=== PATIENT | female | born 1965 | race Caucasian/White ===

== ENCOUNTER 2019-03-12 17:35 | Emergency (ER) | payer MEDICARE, MEDICAID, SELFPAY ==
[2019-03-12 17:49] VITALS: BP 136/96; PULSE 88; RESP 18; TEMP 36.4; O2SAT 95
[2019-03-12] MEDS: Erythromycin Ophth Oint 3.5 GM TUBE OU (18:43)
[2019-03-12 18:49] LABS: Bilirubin Negative (Negative); Blood Negative (Negative); Clarity Clear; Glucose Negative (Negative); Ketones 15 mg/dL (Negative); Leukocyte Esterase Negative (Negative); Nitrite Negative (Negative); Specific Gravity >= 1.030 (1.005-1.025); Urobilinogen 0.2 EU/dL (Up TO 0.2); pH 5.5 (5-8)
[2019-03-12 19:11] LABS: Bacteria Negative HPF (Negative); C & S Indicated? No; Casts Negative LPF (Negative); Crystals Negative HPF (Negative); Epithelial Cells Rare HPF (Negative); Mucus Negative (Negative); Other Cells Negative (Negative); RBC Negative (0-2); WBC 0-2 HPF (0-5)
--- NOTE | 2019-03-12 19:32 | ED.GENADUL_ITS ---
Discharge Plan Disposition Patient Disposition: HOME Condition: Stable Discharge Details Chief Complaint: Urinary Clinical Impression: Urinary frequency, Conjunctivitis Primary Care Provider: Ashley Matos ED Provider: Yasir Kang Home Meds and New Rx's Prescriptions: Continued multivitamin 1 EACH tablet 1 cap PO DAILY RF: 0 quetiapine 25 MG tablet 25 mg PO DAILY RF: 0 quetiapine [Seroquel] 100 MG tablet 1 tab PO DAILY RF: 0 oxcarbazepine [Trileptal] 150 MG tablet 1.5 tab PO BID RF: 0 sertraline [Zoloft] 100 MG tablet 1.5 tab PO DAILY Qty: 135 RF: 4 ergocalciferol (vitamin D2) [Vitamin D2] 50,000 UNIT capsule 1 tab-cap PO Q 2 weeks Qty: 8 RF: 12 atorvastatin 40 MG tablet 40 mg PO DAILY Qty: 90 RF: 11 Discharge Instructions Instructions: Conjunctivitis (ED) Additional Instructions: Continue patient's medications as prescribed and follow-up with primary care provider if patient continues to have urinary frequency. Return to emergency department for any new or significant worsening of symptoms or further concerns. For conjunctivitis please give ointment half inch in each eye 4 times daily for the next 5 to 7 days. Referrals: Ashley Matos MD, [place] [Primary Care Provider] - (As needed for reassessment or if not improving) Medical Decision Making Patient presenting to the emergency department with caregiver for chief complaint of urinary frequency and upper respiratory tract infection with eye irritation for the last couple days. Caregiver states her main concern is for urinary tract infection given that patient has had increase of urinary frequency over the past couple weeks. Patient is also been noted to be more irritable. Patient has severe mental retardation and has lived with caregiver for years. Caregiver denies any fever chills, nausea vomiting, and just states frequency of needing to use the restroom. She has noted over the past 2 days that patient along with upper respiratory tract symptoms has also had eye irritation with matting of the eyelids in the morning for the past 3 mornings. Physical exam shows bilateral conjunctival and scleral injection diffuse with no obvious purulence at this time, otherwise HEENT exam is unremarkable. Clear lung sounds and regular cardiac exam and no abdominal or CVA tenderness. Given conjunctival findings and persistence for 3 days feel that this may be associated with patient's upper respiratory tract infection but given the caregiver states that has seemed worse today plan to give patient erythromycin ointment to treat for any bacterial source. Otherwise plan to check urinalysis for concern of UTI. Review of urinalysis shows no acute urinary tract infectious type symptoms. Given family history of diabetes fingerstick was performed and it was 101. Otherwise patient is in stable condition with no other acute physical exam findings so I do feel that patient is able to be safely followed up with primary care for caregivers note of urinary frequency. Return precautions were discussed. After discussion of diagnosis and plan of care caregiver has no further needs, questions, or concerns and states clear understanding to return to the emergency department for any worsening symptoms. HPI General Mode of arrival: ambulatory . Date/Time Provider Initiated Documentation: 03/12/19 18:04 . Limitations to Documentation: other (Patient's mental delay) . Information obtained by: patient and RN notes reviewed . History of Present Illness 53 year old F presents to the emergency department with the chief complaint of Urinary frequency, uri, described as mild, Quality is described as other (Denies), Patient started experiencing this week(s) (2) and it has been constant. No relieving factors improve symptom(s), Patient notes no other symptoms.. Patient did receive the following treatments prior to arrival, none Related Data Home Medications Medication Instructions Recorded Confirmed multivitamin 1 cap PO DAILY 01/28/13 03/12/19 quetiapine 25 mg PO DAILY 01/28/13 03/12/19 quetiapine [Seroquel] 1 tab PO DAILY 01/28/13 03/12/19 oxcarbazepine [Trileptal] 1.5 tab PO BID 09/03/13 03/12/19 sertraline [Zoloft] 1.5 tab PO DAILY #135 tab 12/05/16 03/12/19 ergocalciferol (vitamin D2) 1 tab-cap PO Q 2 weeks #8 tab-cap 01/31/18 03/12/19 [Vitamin D2] atorvastatin 40 mg PO DAILY #90 tab-cap 05/24/18 03/12/19 Previous Rx's Medication Instructions Recorded ergocalciferol (vitamin D2) 1 tab-cap PO Q 2 weeks #8 tab-cap 01/31/18 [Vitamin D2] atorvastatin 40 mg PO DAILY #90 tab-cap 05/24/18 Allergies Allergy/AdvReac Type Severity Reaction Status Date / Time amoxicillin Allergy Unknown Unverified 04/23/18 14:37 Penicillins Allergy Unknown Unverified 04/23/18 14:37 Sulfa (Sulfonamide Allergy Unknown Unverified 04/23/18 14:37 Antibiotics) oxcarbazepine AdvReac Severe ELEVATED NA Unverified 04/23/18 14:37 General Stated Complaint: Urinary MYRON: 3 Review of Systems Constitutional Denies body ache(s), Denies chills, Denies fever(s), Denies malaise and Denies weakness Eyes Reports eye discharge, Reports irritation and Reports itchy eyes ENT Reports nasal congestion Cardiovascular Denies chest pain Respiratory Reports cough Gastrointestinal Denies abdominal pain, Denies nausea and Denies vomiting Genitourinary Reports as per HPI, Denies hematuria, Reports dysuria and Reports urinary urgency Neurologic Denies confusion and Denies weakness Psychiatric Denies confusion Allergic/Immunologic Reports itchy eyes PFSH Family History Mother Diabetes Father Diabetes Heart disease Sister No problems noted. Brother No problems noted. Sister No problems noted. FAMILY HISTORY Bipolar disorder Social History Smoking/Tobacco Use Status: Current every day Alcohol Intake: never Substance use type: does not use Do you feel safe at home: Yes Do you feel safe in your relationship?: Yes Exam Const General: cooperative and no acute distress Orientation: alert, awake and oriented x3 Eyes Visual Nayak: normal visual nayak by confrontation Alignment and Position: alignment normal Periorbital: periorbital findings normal Eyelids: eyelids normal Conjunctivae: conjunctival abnormality bilaterally conjunctival injection diffuse Sclera: scleral abnormality bilaterally scleral injection diffuse Cornea: corneas normal Pupils: PERRL EOM: EOM intact bilaterally Resp Effort & Inspection: normal respiratory effort and able to speak in complete sentences Auscultation: clear to auscultation bilaterally Cardio Rate: regular rate Rhythm: regular rhythm Heart Sounds: S1 normal and S2 normal GI Palpation: nontender Back/Spine/Pelvis Back: no CVA tenderness Neuro General: alert, awake and oriented x3 Extrem General: normal capillary refill Course Vital Signs Temperature 36.4 C L 03/12/19 17:49 Pulse 88 03/12/19 17:49 Respiratory Rate 18 03/12/19 17:49 Blood Pressure 136/96 H 03/12/19 17:49 Pulse Oximetry 95 03/12/19 17:49 Temperature 36.4 C L 03/12/19 17:49 Temperature Source Skin 03/12/19 17:49 Pulse 88 03/12/19 17:49 Respiratory Rate 18 03/12/19 17:49 Respiratory Effort Non-Labored 03/12/19 17:51 Blood Pressure 136/96 H 03/12/19 17:49 Blood Pressure Position Sitting 03/12/19 17:49 Pulse Oximetry 95 03/12/19 17:49 Oxygen Delivery Method Room Air 03/12/19 17:49 Oxygen Flow Rate 0 03/12/19 17:49 Pain Level 0 03/12/19 17:49 Lab/Test Results Lab/Test Results: Laboratory Tests Range/Units 03/12/19 18:20 Urine Color (Yellow) Yellow Urine Clarity Clear Urine pH (5-8) 5.5 Ur Specific [place] (1.005-1.025) >= 1.030 H Urine Protein (Negative) mg/dL Trace H Urine Ketones (Negative) mg/dL 15 H Urine Blood (Negative) Negative Urine Nitrite (Negative) Negative Urine Bilirubin (Negative) Negative Urine Urobilinogen (Up TO 0.2) EU/dL 0.2 Ur Leukocyte Esterase (Negative) Negative Urine RBC (0-2) Negative Urine WBC (0-5) HPF 0-2 Ur Epithelial Cells (Negative) HPF Rare Urine Crystals (Negative) HPF Negative Urine Bacteria (Negative) HPF Negative Urine Casts (Negative) LPF Negative Urine Mucus (Negative) Negative Urine Other (Negative) Negative Ur Culture Indicated? No Urine Glucose (Negative) mg/dL Negative
== END 2019-03-12 19:50 | disposition home or self-care (01) ==
PROVIDERS: Emergency Provider Nurse Practitioner Family; PCP Family Medicine
DX: R35.0 Frequency of micturition (principal); H10.9 Unspecified conjunctivitis; Z83.3 Family history of diabetes mellitus
CPT/HCPCS: 36416; 82962; 99284; 81003; 81015

== ENCOUNTER 2019-03-26 14:28 | Outpatient (CLI) | payer MEDICARE, MEDICAID, SELFPAY ==
[2019-03-26 14:59] LABS: Abs Immature Grans 0.03 k/cumm (0.0-0.09); Absolute Basophil Count 0.03 k/cumm (0.0-0.2); Absolute Eosinophil Count 0.23 k/cumm (0.0-0.7); Absolute Lymphocyte Count 2.34 k/cumm (1.2-3.4); Absolute Monocyte Count 0.76 k/cumm (0.11-0.7); Absolute Neutrophil Count 6.64 k/cumm (1.2-6.7); Basophils % 0.3; Eosinophils % 2.3; HCT 40.2 % (36.0-46.0); HGB 12.9 g/dL (12.0-15.5); Immature Grans % 0.3; Lymphocytes % 23.3; Mean Corp. HGB Concentration 32.1 g/dL (32.0-36.0); Mean Corpuscular Hemoglobin 28.5 pg (27.0-33.0); Mean Corpuscular Volume 88.9 fL (80-95); Mean Platelet Volume 9.7 fL (8.0-11.0); Monocytes % 7.6; Neutrophils % 66.2; Platelet Count 368 x1000/uL (130-400); RBC 4.52 m/cumm (4.00-5.20); RBC Distribution Width 14.9 % (11.7-14.6); White Blood Cell Count 10.03 k/cumm (4.4-10.8)
[2019-03-26 16:25] LABS: ALT 29 U/L (12-78); AST 17 U/L (15-37); Albumin 3.8 g/dL (3.4-5.0); Alkaline Phosphatase 180 U/L (46-116); Anion Gap 11.7 mmol/L (3-11); BUN 16 mg/dL (7-18); Bilirubin, Total 0.2 mg/dL (0.2-1.0); CO2 27.3 mmol/L (21.0-32.0); CREATININE 0.79 mg/dL (0.55-1.02); Calculated LDL 158; Chloride 102 mmol/L (98-107); Cholesterol 251 mg/dL (50-200); Glucose 91 mg/dL (70-100); HDL Cholesterol 47 mg/dL (40-60); Potassium 4.1 mmol/L (3.5-5.1); Sodium 141 mmol/L (136-145); TSH (W/Ref FT4) 1.11 uIU/mL (0.358-3.74); Total Protein 7.8 g/dL (6.4-8.2); Triglyceride 232 mg/dL (30-150)
== END 2019-03-26 14:48 ==
PROVIDERS: PCP Family Medicine; Visit Provider Family Medicine
DX: F42.9 Obsessive-compulsive disorder, unspecified (principal); F91.9 Conduct disorder, unspecified; G80.9 Cerebral palsy, unspecified; I10 Essential (primary) hypertension; R62.50 Unspecified lack of expected normal physiological development in childhood
CPT/HCPCS: 36415; 80053; 80061; 82306; 83721; 83036; 84443; 85025

== ENCOUNTER 2019-07-25 02:01 | Outpatient (CLI) | payer MEDICARE, MEDICAID, SELFPAY ==
--- NOTE | 2019-07-25 15:01 | DI.MAMMO_ITS ---
EXAM: MAMMO SCREENING CLINICAL HISTORY: screening Z12.31. TECHNIQUE: Mammograms were interpreted according to the usual protocol including computer analysis w [employer] system, tomosynthesis and C-view imaging. COMPARISON: Current examination is compared with previous examinations including April 2017 FINDINGS: The breasts are of moderate density with fairly symmetrical distribution of fibroglandular tissue. No dominant mass or clumped microcalcification is identified in either breast. Current examination is c ompared with previous examinations including April 2017 and there has been no gross interval change in appearance in comparison with the previous studies. IMPRESSION: No specific evidence of malignancy at this time. Routine screening examinations are suggested at year ly intervals in this age group according to the ACS/ACR guidelines. Category 1, breast density catego ry B. BI-RADS Cat 1 - Negative Breast Density - Category B - Scattered areas of fibroglandular density
== END 2019-07-25 02:21 ==
PROVIDERS: PCP Family Medicine; Visit Provider Family Medicine
DX: Z12.31 Encounter for screening mammogram for malignant neoplasm of breast (principal)
CPT/HCPCS: 77063; 77067

== ENCOUNTER 2020-12-10 02:51 | Outpatient (CLI) | payer MEDICARE, MEDICAID, SELFPAY ==
[2020-12-10 15:01] LABS: ALT 28 U/L (14-59); AST 19 U/L (15-37); Albumin 3.9 g/dL (3.4-5.0); Alkaline Phosphatase 161 U/L (46-116); Anion Gap 12.3 mmol/L (3-11); BUN 11 mg/dL (7-18); Bilirubin, Total 0.3 mg/dL (0.2-1.0); CO2 25.7 mmol/L (21.0-32.0); CREATININE 0.6 mg/dL (0.55-1.02); Calculated LDL 133 mg/dL (<100); Chloride 92 mmol/L (98-107); Cholesterol 222 mg/dL (<200); Glucose 108 mg/dL (74-106); HDL Cholesterol 50 mg/dL (40-60); Potassium 4.3 mmol/L (3.5-5.1); Sodium 130 mmol/L (136-145); Total Protein 7.4 g/dL (6.4-8.2); Triglyceride 195 mg/dL (<150)
== END 2020-12-10 02:52 | disposition home or self-care (01) ==
LOC: LBO 02:51
PROVIDERS: PCP Family Medicine; Visit Provider Family Medicine
DX: E11.9 Type 2 diabetes mellitus without complications (principal); I10 Essential (primary) hypertension; E78.5 Hyperlipidemia, unspecified
CPT/HCPCS: 36415; 80053; 80061; 83036

== ENCOUNTER 2021-01-19 11:29 | Outpatient (REF) | payer MEDICARE, MEDICAID, SELFPAY ==
[2021-01-19 13:32] LABS: Bilirubin Negative (Negative); Blood Negative (Negative); Clarity Cloudy (Clear); Glucose Negative (Negative); Ketones Negative (Negative); Leukocyte Esterase Trace (Negative); Nitrite Positive (Negative); Urobilinogen 0.2 EU/dL (Up TO 0.2)
[2021-01-19 13:40] LABS: Bacteria Many HPF (Negative); C & S Indicated? Yes; Casts Negative LPF (Negative); Crystals Negative HPF (Negative); Epithelial Cells Rare HPF (Negative); Mucus Negative (Negative); Other Cells Negative (Negative); RBC Negative HPF (0-2)
== END 2021-01-19 11:30 | disposition home or self-care (01) ==
LOC: LBN 11:29
PROVIDERS: PCP Family Medicine; Visit Provider Family Medicine
DX: R35.0 Frequency of micturition (principal)
CPT/HCPCS: 87077; 81003; 81015; 87086; 87186

== ENCOUNTER 2021-02-05 16:39 | Outpatient (REF) | payer MEDICARE, MEDICAID, SELFPAY ==
[2021-02-05 21:06] LABS: Bilirubin Negative (Negative); Blood Negative (Negative); Clarity Clear (Clear); Glucose Negative (Negative); Ketones Negative (Negative); Leukocyte Esterase Small (Negative); Nitrite Negative (Negative); Specific Gravity 1.025 (1.005-1.025); Urobilinogen 0.2 EU/dL (Up TO 0.2); pH 5.5 (5-8)
[2021-02-05 21:19] LABS: Epithelial Cells Few HPF (Negative); RBC Negative HPF (0-2)
[2021-02-05 21:20] LABS: Bacteria Negative HPF (Negative); C & S Indicated? C&S Done As Ordered; Casts Negative LPF (Negative); Crystals Negative HPF (Negative); Mucus Negative (Negative)
== END 2021-02-05 16:40 | disposition home or self-care (01) ==
LOC: NCHCN 16:39
PROVIDERS: PCP Family Medicine; Visit Provider Emergency Medicine
DX: N39.0 Urinary tract infection, site not specified (principal)
CPT/HCPCS: 81003; 81015; 87086

== ENCOUNTER 2021-06-18 02:03 | Outpatient (CLI) | payer MEDICARE, MEDICAID, SELFPAY ==
[2021-06-18 15:55] LABS: HCT 39.3 % (36.0-46.0); HGB 13.2 g/dL (11.2-15.7); MCH 29.5 pg (27.0-33.0); MCHC 33.6 % (32.0-36.0); MCV 87.9 fL (80-95); MPV 9.1 fL (8.0-11.0); Platelet Count 316 10^3/uL (130-400); RBC 4.47 10^6/uL (3.93-5.22); RDW 12.8 % (11.7-14.6); RDW-SD 41.4 fL; WBC 8.82 10^3/uL (4.4-10.8)
[2021-06-18 17:11] LABS: Anion Gap 7.4 mmol/L (3-11); BUN 22 mg/dL (7-18); CO2 28.6 mmol/L (21.0-32.0); CREATININE 0.7 mg/dL (0.55-1.02); Calcium 8.9 mg/dL (8.5-10.1); Chloride 101 mmol/L (98-107); Glucose 108 mg/dL (74-106); Potassium 4.3 mmol/L (3.5-5.1); Sodium 137 mmol/L (136-145)
== END 2021-06-18 02:04 | disposition home or self-care (01) ==
LOC: LBO 02:03
PROVIDERS: Family Medicine; PCP Family Medicine; Visit Provider Family Medicine
DX: E87.1 Hypo-osmolality and hyponatremia (principal); R53.83 Other fatigue
CPT/HCPCS: 36415; 80048; 85027

== ENCOUNTER 2021-07-06 01:35 | Outpatient (CLI) | payer MEDICARE, MEDICAID, SELFPAY ==
--- NOTE | 2021-07-06 14:00 | DI.MAMMO_ITS ---
Exam(s) MAMMO SCREENING EXAM: MAMMO SCREENING CLINICAL HISTORY: screening,Z12.39 TECHNIQUE: Mammograms were interpreted according to the usual protocol including computer analysis w [employer] CAD system, tomosynthesis and C-view imaging. COMPARISON: 2012 through 2018 FINDINGS: The positioning is limited on several views and there is some motion related to patient disability. The breasts are composed of scattered fibroglandular densities, Breast Density category B. No suspicious masses or suspicious microcalcifications are seen. No skin thickening or abnormal axillary lymph nodes are seen. There has been no significant change from prior exams. IMPRESSION: BI-RADS Category 1, Negative mammogram Yearly screening mammography is recommended. Breast Density - Category B, scattered fibroglandular densities. A negative radiographic report should not delay biopsy if a dominant or clinically suspicious mass is present. Up to ten percent of cancers are not identified on mammography. A negative report may reinforce clinical impression. Adenosis and dense breasts may obscure an underlying neoplasm. False positive reports average 6 to 10%. Patient will receive a letter notifying them of these results.
== END 2021-07-06 01:55 ==
PROVIDERS: PCP Family Medicine; Visit Provider Family Medicine
DX: Z12.31 Encounter for screening mammogram for malignant neoplasm of breast (principal)
CPT/HCPCS: 77063; 77067

== ENCOUNTER 2022-02-10 02:30 | Outpatient (CLI) | payer MEDICARE, MEDICAID, SELFPAY ==
[2022-02-10 11:02] LABS: HCT 40.7 % (36.0-46.0); HGB 14.1 g/dL (11.2-15.7); MCH 30.1 pg (27.0-33.0); MCHC 34.6 % (32.0-36.0); MPV 8.4 fL (8.0-11.0); Platelet Count 320 10^3/uL (130-400); RBC 4.68 10^6/uL (3.93-5.22); RDW 12.4 % (11.7-14.6); RDW-SD 39.5 fL; WBC 10.11 10^3/uL (4.4-10.8)
[2022-02-10 12:11] LABS: ALT 24 U/L (14-59); AST 16 U/L (15-37); Albumin 4.2 g/dL (3.4-5.0); Alkaline Phosphatase 175 U/L (46-116); Anion Gap 6.5 mmol/L (3-11); BUN 11 mg/dL (7-18); Bilirubin, Total 0.5 mg/dL (0.2-1.0); CO2 30.5 mmol/L (21.0-32.0); CREATININE 0.6 mg/dL (0.55-1.02); Calcium 9.1 mg/dL (8.5-10.1); Calculated LDL 156 mg/dL (<100); Chloride 91 mmol/L (98-107); Cholesterol 235 mg/dL (<200); Glucose 104 mg/dL (74-106); HDL Cholesterol 52 mg/dL (40-60); Potassium 4.4 mmol/L (3.5-5.1); Sodium 128 mmol/L (136-145); Total Protein 7.7 g/dL (6.4-8.2); Triglyceride 138 mg/dL (<150)
== END 2022-02-10 02:31 | disposition home or self-care (01) ==
LOC: LBO 02:30
PROVIDERS: PCP Family Medicine; Visit Provider Family Medicine
DX: E78.5 Hyperlipidemia, unspecified (principal); I10 Essential (primary) hypertension; F31.9 Bipolar disorder, unspecified; R63.4 Abnormal weight loss
CPT/HCPCS: 36415; 80053; 80061; 85027; 84443

== ENCOUNTER 2022-02-24 03:50 | Outpatient (CLI) | payer MEDICARE, MEDICAID, SELFPAY ==
[2022-02-24 12:33] LABS: Anion Gap 7.7 mmol/L (3-11); BUN 14 mg/dL (7-18); CO2 28.3 mmol/L (21.0-32.0); CREATININE 0.8 mg/dL (0.55-1.02); Calcium 9.1 mg/dL (8.5-10.1); Chloride 101 mmol/L (98-107); Glucose 99 mg/dL (74-106); Potassium 4.4 mmol/L (3.5-5.1); Sodium 137 mmol/L (136-145)
== END 2022-02-24 03:51 | disposition home or self-care (01) ==
LOC: LOS 03:50
PROVIDERS: PCP Family Medicine; Visit Provider Family Medicine
DX: E87.1 Hypo-osmolality and hyponatremia (principal)
CPT/HCPCS: 36415; 80048

== ENCOUNTER 2022-03-31 02:24 | Outpatient (CLI) | payer MEDICARE, MEDICAID, SELFPAY ==
[2022-03-31 13:45] LABS: HCT 41.1 % (36.0-46.0); MCH 29.9 pg (27.0-33.0); MCHC 34.1 % (32.0-36.0); MCV 88 fL (80-95); MPV 8.7 fL (8.0-11.0); Platelet Count 320 10^3/uL (130-400); RBC 4.69 10^6/uL (3.93-5.22); RDW 12.8 % (11.7-14.6); RDW-SD 41.1 fL; WBC 7.99 10^3/uL (4.4-10.8)
[2022-03-31 15:25] LABS: ALT 21 U/L (14-59); AST 16 U/L (15-37); Albumin 4.1 g/dL (3.4-5.0); Alkaline Phosphatase 148 U/L (46-116); BUN 7 mg/dL (7-18); Bilirubin, Total 0.2 mg/dL (0.2-1.0); CREATININE 0.6 mg/dL (0.55-1.02); Calcium 9.3 mg/dL (8.5-10.1); Chloride 96 mmol/L (98-107); Glucose 98 mg/dL (74-106); Sodium 134 mmol/L (136-145); Total Protein 8.1 g/dL (6.4-8.2)
[2022-03-31 15:48] LABS: Vitamin D 25 Total 47.2 ng/mL (30-100)
== END 2022-03-31 02:25 | disposition home or self-care (01) ==
LOC: LBO 02:24
PROVIDERS: PCP Family Medicine; Visit Provider Family Medicine
DX: R63.4 Abnormal weight loss (principal); E55.9 Vitamin D deficiency, unspecified; E87.1 Hypo-osmolality and hyponatremia
CPT/HCPCS: 36415; 80053; 82306; 85027

== ENCOUNTER → 2022-09-21 02:34 | Outpatient (CLI) | payer MEDICARE, MEDICAID, SELFPAY ==
--- NOTE | 2022-09-21 11:05 | DI.MAMMO_ITS ---
Exam(s) MG MAMMO SCREENING 60 MIN DUR EXAM: MG MAMMO SCREENING 60 MIN DUR CLINICAL HISTORY: breast cancer screening,z12.39. TECHNIQUE: Bilateral full field digital CC and MLO mammographic images were obtained with 3D tomosyn thesis and utilizing computer aided detection (CAD). COMPARISON: Prior mammograms were reviewed. FINDINGS: There has been no significant change in the appearance and distribution of the fibroglandular tissue. There are no CAD designations. There are no new spiculated masses nor malignant appearing microcalcification groups. There is no significant architectural distortion nor skin thickening-retraction. IMPRESSION: No radiographic evidence of malignancy. BI-RADS Category 1 - Negative Breast Density - Category B - Scattered areas of fibroglandular density Breast density Category C or D implies that the patient has dense breast tissue. Dense breast tissue can make it harder to find cancer on a mammogram. Dense breast tissue is also associated with an incr eased risk of breast cancer. This information about the result of the mammogram report was provided to the patient to raise their awareness. Use this report when you speak with the patient about their risks for breast cancer, which includes their family history. At that time, you may recommend additional screening tests (Ultrasoun d or MRI) as these tests may add significant information. A negative radiographic report should not delay biopsy if a dominant or clinically suspicious mass is present. Up to ten percent of cancers are not identified on mammography. A negative report may reinforce clinical impression. Adenosis and dense breasts may obscure an underlying neoplasm. False positive reports average 6 to 10%. Patient will receive a letter notifying them of these results.
== END ==
PROVIDERS: PCP Family Medicine; Visit Provider Family Medicine
DX: Z12.31 Encounter for screening mammogram for malignant neoplasm of breast (principal)
CPT/HCPCS: 77063; 77067

== ENCOUNTER → 2022-09-28 02:31 | Outpatient (CLI) | payer MEDICARE, MEDICAID, SELFPAY ==
--- NOTE | 2022-09-28 08:00 | DI.DEXA_ITS ---
Exam(s) XR DEXA BONE DENSITY W/WO RENAE EXAM: XR DEXA BONE DENSITY W/WO RENAE CLINICAL HISTORY: group home provera, osteoporosis, m81.0 TECHNIQUE: COMPARISON: No exams were available for comparison FINDINGS: DEXA scan was performed according to the usual protocol. Please see the accompanying data sheets. Findings for left hip scanning are T-score -2.1 with left femoral neck T-score -2.5. Prior examinati on of April 11 showed left hip T-score -0.9. Lumbar spine scanning shows T-score -1.9. Prior examination of 11/05 showed lumbar T-score -1.0. Left forearm scanning shows T-score -1.3. IMPRESSION: The measurements are consistent with osteoporosis according to the WHO criteria. The lateral vertebr al scanogram shows no evidence of a vertebral compression fracture. RADIATION DOSE DELIVERED: Total DLP
== END ==
PROVIDERS: PCP Family Medicine; Visit Provider Family Medicine
DX: M81.0 Age-related osteoporosis without current pathological fracture (principal); Z79.3 Long term (current) use of hormonal contraceptives
CPT/HCPCS: 77080

== ENCOUNTER 2023-05-11 02:38 | Outpatient (CLI) | payer MEDICARE, MEDICAID, SELFPAY ==
[2023-05-11 14:43] LABS: HCT 38.3 % (36.0-46.0); HGB 13.6 g/dL (11.2-15.7); MCH 30.7 pg (27.0-33.0); MCHC 35.5 % (32.0-36.0); MCV 87 fL (80-95); MPV 8.5 fL (8.0-11.0); Platelet Count 279 10^3/uL (130-400); RBC 4.43 10^6/uL (3.93-5.22); RDW 12.6 % (11.7-14.6); RDW-SD 39.9 fL; WBC 8.49 10^3/uL (4.4-10.8)
[2023-05-11 15:47] LABS: ALT 19 U/L (14-59); AST 15 U/L (15-37); Albumin 3.5 g/dL (3.4-5.0); Alkaline Phosphatase 144 U/L (46-116); Anion Gap 6.9 mmol/L (3-11); BUN 13 mg/dL (7-18); Bilirubin, Total 0.2 mg/dL (0.2-1.0); CO2 29.1 mmol/L (21.0-32.0); CREATININE 0.6 mg/dL (0.55-1.02); Calcium 8.5 mg/dL (8.5-10.1); Calculated LDL 126 mg/dL (<100); Chloride 99 mmol/L (98-107); Cholesterol 216 mg/dL (<200); Estimated GFR 103.33 (mL/min/1.73m2); Glucose 119 mg/dL (74-106); HDL Cholesterol 49 mg/dL (40-60); Potassium 3.9 mmol/L (3.5-5.1); Sodium 135 mmol/L (136-145); Total Protein 7.1 g/dL (6.4-8.2); Triglyceride 205 mg/dL (<150)
== END 2023-05-11 02:39 | disposition home or self-care (01) ==
LOC: LBO 02:38
PROVIDERS: PCP Family Medicine; Visit Provider Family Medicine
DX: E78.5 Hyperlipidemia, unspecified (principal); E87.1 Hypo-osmolality and hyponatremia; I10 Essential (primary) hypertension; Q07.9 Congenital malformation of nervous system, unspecified; Z00.00 Encounter for general adult medical examination without abnormal findings
CPT/HCPCS: 36415; 80053; 80061; 85027; 84443

== ENCOUNTER → 2023-09-22 00:51 | Outpatient (CLI) | payer MEDICARE, MEDICAID, SELFPAY ==
--- NOTE | 2023-09-22 07:00 | DI.MAMMO_ITS ---
Exam(s) MG MAMMO SCREENING 60 MIN DUR EXAM: MG MAMMO SCREENING 60 MIN DUR CLINICAL HISTORY: breast cancer screening,z12.39 TECHNIQUE: Bilateral full field digital CC and MLO mammographic images were obtained with 3D tomosyn thesis and utilizing computer aided detection (CAD). COMPARISON: Available for comparison. FINDINGS: Masses/Architectural Distortion: There is a new opacity seen in the lateral aspect of the left breast on the CC view 3 cm from the nipple. There are no areas of architectural distortion. Microcalcifications: No suspicious pleomorphic-type are seen. Skin Thickening/Nipple Retraction: None. IMPRESSION: 1. New opacity in the lateral aspect of the left breast on the CC view. 2. Spot compression views requested for further evaluation. Ultrasound may be indicated at that time . BI-RADS Category 0 - Assessment Incomplete: Need additional imaging evaluation Breast Density - Category B - Scattered areas of fibroglandular density Breast density category C or D implies that the patient has dense breast tissue. Dense breast tissue is very common and is not abnormal but dense breast tissue can make it harder to find cancer on a ma mmogram. Also, dense breast tissue may increase their breast cancer risk. This information about the result of the mammogram report was provided to the patient to raise their awareness. Use this report when you speak with the patient about their risks for breast cancer, which includes their family hist ory. At that time, you may recommend for more screening tests (Ultrasound or MRI) as they might be us eful based on their risk. A negative radiographic report should not delay biopsy if a dominant or clinically suspicious mass is present. Up to ten percent of cancers are not identified on mammography. A negative report may reinforce clinical impression. Adenosis and dense breasts may obscure an underlying neoplasm. False positive reports average 6 to 10%. Patient will receive a letter notifying them of these results.
== END ==
PROVIDERS: PCP Family Medicine; Visit Provider Family Medicine
DX: Z12.31 Encounter for screening mammogram for malignant neoplasm of breast (principal)
CPT/HCPCS: 77063; 77067

== ENCOUNTER → 2023-09-28 01:49 | Outpatient (CLI) | payer MEDICARE, MEDICAID, SELFPAY ==
--- NOTE | 2023-09-28 | DI.MAMMO_ITS ---
Exam(s) MAMMO SCREEN CALL BACK UNI EXAM: MAMMO SCREEN CALL BACK UNI CLINICAL HISTORY: F/U MAMMO, NEW OPACITY LAT LT BREAST CC VIEW TECHNIQUE: Cc spot compression view with tomographic imaging were performed. COMPARISON: 2014 through 2021 FINDINGS: No suspicious masses or suspicious microcalcifications are seen. No persistent abnormality is seen on the additional views performed. The opacity in question corresp onded to the nipple. There has been no significant change from prior exams. IMPRESSION: BI-RADS Category 1, Negative Yearly screening mammography is recommended. Breast Density - Category B, scattered fibroglandular densities.
== END ==
PROVIDERS: PCP Family Medicine; Visit Provider Family Medicine
DX: R92.8 Other abnormal and inconclusive findings on diagnostic imaging of breast (principal); Z12.31 Encounter for screening mammogram for malignant neoplasm of breast
CPT/HCPCS: 77063; 77067

== ENCOUNTER 2024-08-12 11:33 | Outpatient (CLI) | payer MEDICARE, MEDICAID, SELFPAY ==
[2024-08-12 12:37] LABS: HCT 40.9 % (36.0-46.0); MCHC 34.2 % (32.0-36.0); MCV 91 fL (80-95); MPV 8.7 fL (8.0-11.0); Platelet Count 357 10^3/uL (130-400); RBC 4.51 10^6/uL (3.93-5.22); RDW 12.5 % (11.7-14.6); RDW-SD 41.9 fL; WBC 7.66 10^3/uL (4.4-10.8)
[2024-08-12 13:11] LABS: ALT 23 U/L (14-59); AST 17 U/L (15-37); Albumin 3.7 g/dL (3.4-5.0); Alkaline Phosphatase 143 U/L (46-116); Anion Gap 7.9 mmol/L (3-11); BUN 18 mg/dL (7-18); CO2 29.1 mmol/L (21.0-32.0); CREATININE 0.7 mg/dL (0.55-1.02); Calcium 9.1 mg/dL (8.5-10.1); Calculated LDL 126 mg/dL (<100); Chloride 102 mmol/L (98-107); Cholesterol 217 mg/dL (<200); Estimated GFR 98.95 (mL/min/1.73m2); Glucose 115 mg/dL (74-106); HDL Cholesterol 62 mg/dL (40-60); Potassium 4.2 mmol/L (3.5-5.1); Sodium 139 mmol/L (136-145); Total Protein 7.7 g/dL (6.4-8.2); Triglyceride 145 mg/dL (<150); Vitamin D 25 Total 41.1 ng/mL (30-100)
== END 2024-08-12 11:34 | disposition home or self-care (01) ==
LOC: LOS 11:33
PROVIDERS: PCP Family Medicine; Referring Provider Family Medicine; Visit Provider Family Medicine
DX: E55.9 Vitamin D deficiency, unspecified (principal); Z00.00 Encounter for general adult medical examination without abnormal findings; I10 Essential (primary) hypertension; D64.9 Anemia, unspecified; Z23 Encounter for immunization; M19.079 Primary osteoarthritis, unspecified ankle and foot
CPT/HCPCS: 36415; 80053; 80061; 82306; 85027

== ENCOUNTER 2025-01-15 02:18 | Outpatient (CLI) | payer MEDICARE, MEDICAID, SELFPAY ==
[2025-01-15 09:42] LABS: Hemoglobin A1C 5.4 % (<5.7)
[2025-01-15 10:38] LABS: TROPONIN-I < 0.5 ug/mL (4.0-12.0)
[2025-01-15 11:04] LABS: Vitamin B12 707 pg/mL (193-986)
[2025-01-16 10:30] LABS: IgA 375 mg/dL (85-499); Interpretation (See Note); Tissue Transglutaminase IgA <4.0 CU (<20.0)
== END 2025-01-15 02:19 | disposition home or self-care (01) ==
PROVIDERS: PCP Family Medicine; Visit Provider Psychiatry & Neurology Psychiatry
DX: Z79.899 Other long term (current) drug therapy (principal)
CPT/HCPCS: 36415; 82784; 83516; 80156; 82607; 83036

== ENCOUNTER 2025-02-14 00:44 | Outpatient (CLI) | payer MEDICARE, MEDICAID, SELFPAY ==
[2025-02-14 09:50] LABS: ALT 25 U/L (14-59); AST 22 U/L (15-37); Albumin 3.9 g/dL (3.4-5.0); Alkaline Phosphatase 158 U/L (46-116); Anion Gap 7.7 mmol/L (3-11); BUN 9 mg/dL (7-18); Bilirubin, Total 0.4 mg/dL (0.2-1.0); CO2 30.3 mmol/L (21.0-32.0); CREATININE 0.6 mg/dL (0.55-1.02); Calcium 9.1 mg/dL (8.5-10.1); Calculated LDL 143 mg/dL (<100); Chloride 94 mmol/L (98-107); Cholesterol 222 mg/dL (<200); Estimated GFR 102.06 (mL/min/1.73m2); Glucose 115 mg/dL (74-106); HDL Cholesterol 63 mg/dL (>or=50); Potassium 3.8 mmol/L (3.5-5.1); Sodium 132 mmol/L (136-145); Total Protein 7.9 g/dL (6.4-8.2); Triglyceride 83 mg/dL (<150); Vitamin D 25 Total 55 ng/mL (30-100)
[2025-02-19 10:17] LABS: Oxcarbazepine Metabolite, S 13 mcg/mL (10 - 35)
== END 2025-02-14 00:45 | disposition home or self-care (01) ==
LOC: LBO 00:44
PROVIDERS: PCP Family Medicine; Visit Provider Psychiatry & Neurology Psychiatry
DX: Z79.899 Other long term (current) drug therapy (principal)
CPT/HCPCS: 36415; 80053; 80061; 80183; 82306

== ENCOUNTER 2025-07-29 01:37 | Outpatient (CLI) | payer MEDICARE, MEDICAID, SELFPAY ==
[2025-07-29 14:30] LABS: ALT 23 U/L (14-59); AST 18 U/L (15-37); Albumin 3.7 g/dL (3.4-5.0); Alkaline Phosphatase 132 U/L (46-116); Anion Gap 9.6 mmol/L (3-11); BUN 12 mg/dL (7-18); Bilirubin, Total 0.3 mg/dL (0.2-1.0); CO2 27.4 mmol/L (21.0-32.0); Calcium 8.5 mg/dL (8.5-10.1); Calculated LDL 131 mg/dL (<100); Chloride 96 mmol/L (98-107); Cholesterol 204 mg/dL (<200); Estimated GFR 106.64 (mL/min/1.73m2); Glucose 102 mg/dL (74-106); HDL Cholesterol 58 mg/dL (>or=50); Potassium 4.0 mmol/L (3.5-5.1); Sodium 133 mmol/L (136-145); Total Protein 7.6 g/dL (6.4-8.2); Triglyceride 76 mg/dL (<150)
== END 2025-07-29 01:38 | disposition home or self-care (01) ==
LOC: LOS 01:37
PROVIDERS: PCP Family Medicine; Visit Provider Psychiatry & Neurology Psychiatry
DX: I10 Essential (primary) hypertension (principal)
CPT/HCPCS: 36415; 80053; 80061

== ENCOUNTER 2025-09-01 03:25 | Outpatient (CLI) | payer MEDICARE, MEDICAID, SELFPAY ==
[2025-09-01 09:53] LABS: ALT 24 U/L (14-59); AST 17 U/L (15-37); Albumin 3.8 g/dL (3.4-5.0); Alkaline Phosphatase 138 U/L (46-116); Anion Gap 7.6 mmol/L (3-11); BUN 10 mg/dL (7-18); Bilirubin, Total 0.4 mg/dL (0.2-1.0); CO2 30.4 mmol/L (21.0-32.0); Calcium 8.6 mg/dL (8.5-10.1); Chloride 95 mmol/L (98-107); Cholesterol 221 mg/dL (<200); Glucose 110 mg/dL (74-106); HDL Cholesterol 60 mg/dL (>or=50); Potassium 3.9 mmol/L (3.5-5.1); Sodium 133 mmol/L (136-145); Total Protein 7.6 g/dL (6.4-8.2)
[2025-09-01 10:01] LABS: Hemoglobin A1C 5.6 % (<5.7)
== END 2025-09-01 03:26 | disposition home or self-care (01) ==
LOC: LBO 03:25
PROVIDERS: PCP Family Medicine; Visit Provider Psychiatry & Neurology Psychiatry
DX: Z79.899 Other long term (current) drug therapy (principal)
CPT/HCPCS: 36415; 80053; 80061; 80156; 83036